=== PATIENT | male | born 1940 | race Caucasian/White ===

== ENCOUNTER 2017-11-05 09:08 | Inpatient (IN) | payer OTHER, MEDICARE ==
[2017-11-05] VITALS (8 sets, daily range): BP systolic 142–168; BP diastolic 46–75
[~2017-11-05] VITALS: Ht 182.8 cm; Wt 111.6 kg
--- NOTE | ~2017-11-05 | PR ---
[place], [place] PROGRESS NOTE NAME: DUONG BENJAMIN UNIT #: [id number] ROOM: 405 DOCTOR: MARIANA KESSLER MD BIRTHDATE: [birth year] DOS: 11/06/2017 CARDIOLOGY PROGRESS NOTE SUBJECTIVE: The patient was seen today, 11/06/2017, in the Cardiology Department just prior to a pharmacologic stress test. He is a 76-year-old man who has a history of atherosclerotic heart disease with a stent placed in 2017. Details are not available at this time. He does have degenerative joint disease and a torn left rotator cuff. He presented to the hospital on 11/05/2017 after feeling weak with swelling of his face and left shoulder pain. In the hospital, his electrocardiogram showed no acute changes and cardiac biomarkers were normal. Overnight, he has felt better and he states that the weakness has resolved. PHYSICAL EXAMINATION: VITAL SIGNS: Today, his pulse is 63 and regular, blood pressure is 164/65. He is afebrile. He weighs 111.6 kilograms. NECK: Supple. He has no jugular distention. Carotids are full. LUNGS: Respirations are unlabored. HEART: Has a regular rhythm with an S4 gallop. ABDOMEN: Soft and normally active. EXTREMITIES: Showed no edema. IMPRESSION: 1. Atypical chest pain, most likely musculoskeletal in origin. 2. History of coronary artery disease, status post stent reported about a year ago. Details not available. 3. Chronic dyspnea on exertion due to obstructive lung disease. 4. Essential hypertension. 5. Hyperlipidemia. PLAN: We will proceed with a pharmacologic stress test today. Further recommendations will depend upon the results of the stress test. The patient was noted to have normal oximetry at rest today and oxygen will be discontinued at this time. We thank the hospitalist physicians for asking our advice regarding his care. [place], [place] PROGRESS NOTE NAME: DUONG BENJAMIN UNIT #: [id number] ROOM: 405 DOCTOR: MARIANA KESSLER MD BIRTHDATE: [birth year] MARIANA KESSLER MD CM:PNTRANS [id number] MARIANA KESSLER MD 11/06/17 1352 interface
--- NOTE | ~2017-11-05 | CON ---
[place], [place] REPORT OF CONSULTATION NAME[id number] UNIT #: [id number] ROOM: 405 DOCTOR: MARIANA KESSLER MD BIRTHDATE: [birth year] DOS: 11/05/2017 REASON FOR CONSULTATION: Chest pain and dyspnea. HISTORY OF PRESENT ILLNESS: The patient is a 76-year-old man who is typically followed by the [facility]. He does have a history of atherosclerotic heart disease and tells me that he had catheterization in 1983 and again in 2017. The latter resulted in placement of a stent, although those details are not currently available. He also does have degenerative joint disease and has a torn left rotator cuff. He states that he began to feel weak on the afternoon prior to his admission and went to bed early. When he woke up, he felt that his face was swollen and his left shoulder hurt more than usual. He also noticed some aching in his left anterior chest. He became concerned and came to the Emergency Room. Thus far electrocardiograms have shown no acute changes and cardiac biomarkers including troponin levels have been normal. At present time, he still does note some left shoulder pain, but does admit that this gets worse with motion. PAST MEDICAL HISTORY: Includes 1. Atherosclerotic heart disease, status post myocardial infarction in 1983 and again in 2017. The patient believes he had a stent with the 2017 event. 2. Essential hypertension. 3. Type 2 diabetes mellitus. 4. COPD. The patient does not require home oxygen. 5. Hyperlipidemia. 6. History of GI bleed. 7. Dementia. 8. History of appendectomy, hernia repair and tonsillectomy. REVIEW OF SYSTEMS: The patient denies diplopia or loss of vision. He denies any focal weakness. He denies lightheadedness or syncope. He denies orthopnea or PND. He denies fevers, chills, sweats or recent weight change. He denies nausea or vomiting. He denies hemoptysis or hematemesis. He denies change in bowel or bladder habits. He denies blood in his stools or urine. He does admit to swelling of his face, neck and feet. He attributes the left foot swelling to an old injury. He denies any skin rashes. The remainder of the review of systems is negative except as noted above. FAMILY HISTORY: The patient's mother of cancer in the bone, unknown age. His father of coronary artery disease at an unknown age. MEDICATIONS: Prior to admission, Symbicort 160/4.5 one puff b.i.d., Combivent 1 puff q.i.d., atorvastatin 80 mg daily, donepezil 10 mg daily, gabapentin 1200 mg daily at bedtime with 400 mg in the morning and again in the afternoon, hydrochlorothiazide 12.5 mg daily, losartan 50 mg daily, melatonin 9 mg at bedtime, memantine 10 mg b.i.d., metformin 850 mg b.i.d., metoprolol tartrate 50 mg b.i.d., ranitidine 300 mg at bedtime, sertraline 200 mg daily, nitroglycerin sublingually p.r.n., NovoLog insulin 15 units subcutaneously t.i.d. and Lantus insulin 50 units in the morning. [place], [place] REPORT OF CONSULTATION NAME: DUONG BENJAMIN UNIT #: [id number] ROOM: 405 DOCTOR: MARIANA KESSLER MD BIRTHDATE: [birth year] ALLERGIES: The patient has no known drug allergies. SOCIAL HISTORY: The patient is . He was a smoker, but quit about 15 years ago. He does not use illegal drugs or consume alcohol. PHYSICAL EXAMINATION: GENERAL: The patient is an overweight white male who is awake, alert and oriented. VITAL SIGNS: Pulse is 70 and regular, blood pressure is 142/54. He is afebrile. He weighs 111.6 kg and has a body mass index of 33.4. HEENT: Normocephalic and atraumatic. Extraocular muscles are intact. Sclerae are clear. Pupils are equal, round and react to light. The oral mucosa is moist. Tongue is midline. NECK: Supple. He has no jugular distention. Carotids are full. I heard no bruits. He had no neck or supraclavicular masses and no thyromegaly. LUNGS: Respirations are unlabored. He has decreased breath sounds at the bases. He has mild expiratory prolongation bilaterally. I did not hear wheezes or rales. He had no presacral edema or chest wall tenderness. CARDIOVASCULAR: His heart had a regular rhythm. Heart tones were distant. There was a fourth heart sound, but no third heart sound. The PMI was not displaced and there was no precordial heave, lift or thrill. ABDOMEN: Obese, but otherwise benign, without mass, organomegaly, bruits or rebound. EXTREMITIES: Showed trace edema bilaterally. Peripheral pulses are palpable in the feet. LABORATORY DATA: Chest x-ray shows clear lung mckenna without any acute changes. His electrocardiogram shows sinus rhythm and is a normal tracing. Hemoglobin is 13.5, hematocrit 40.4. There are 10,500 white cells and 120,000 platelets. INR 0.9. Sodium 140, potassium 4.4, chloride 105, CO2 of 30, BUN 17, creatinine 1.19, sugar is 256. Alkaline phosphatase is elevated at 129. IMPRESSION: 1. Atypical chest pain, most likely this is musculoskeletal in origin. 2. History of coronary artery disease, status post reported stent over a year ago. 3. Chronic dyspnea on exertion due to obstructive lung disease. 4. Essential hypertension. 5. Hyperlipidemia. PLAN: Thus far, the patient shows no signs of an acute coronary injury. We will reassess him with a pharmacologic stress test and we will also look at an echocardiogram to assess left ventricular systolic function given his history of peripheral edema. If that looks okay, I have no other plans for further advanced workup, but we will make further recommendations depending upon the results of his testing. I thank the hospitalist physicians for asking our advice regarding his care. [place], [place] REPORT OF CONSULTATION NAME: DUONG BENJAMIN UNIT #: [id number] ROOM: 405 DOCTOR: MARIANA KESSLER MD BIRTHDATE: [birth year] MARIANA KESSLER MD CM:CONSTR:REPORT OF CONSULTATION 04 11/05/171945 interface
[~2017-11-05 09:08] MED LIST: ARICEPT10 M1 PO; ATORVASTATIN CA80 M1 PO; COMBIVENT RESPIM4 GM INH; COZAAR50 M1 PO; HYDR25T PO; LANTUS SOLOS100 U/M1 SQ; LOPRESSOR50 M1 PO; MELATONIN3 MG PO; MEMANTINE HCL10 MG PO; METFORMIN HCL850 MG PO; NEURONTIN400 MG PO; NITROGLYCERIN0.4 MG SL; NOVOLOG FLEX100 U/ML SQ; RANITIDINE HCL150 M1 PO; SYMBICORT1 AE1 INH; ZOLOFT100 MG PO; ZOSTRIX 0.025%,60 GM PO
[2017-11-05 09:38] LABS: BASO # 0.1 10*3/uL (0.0-0.1); BASO % 0.5 % (0.0-1.0); EOS # 0.2 10*3/uL (0.0-0.4); HEMATOCRIT 40.4 % (42.0-52.0); HEMOGLOBIN 13.5 g/dl (14.0-18.0); LYMPH # 1.9 10*3/uL (1.3-4.4); LYMPH % 17.7 % (27.0-41.0); MEAN CELL VOLUME 87.6 fl (80.0-94.0); MEAN CORPUSCULAR HGB 29.3 pg (27.0-31.0); MEAN CORPUSCULAR HGB CONC 33.4 g/dl (33.0-37.0); MEAN PLATELET VOLUME 9.2 fl (9.6-12.3); MONO # 0.5 10*3/uL (0.1-1.0); MONO % 4.9 % (3.0-9.0); NEUT # 7.8 10*3/uL (2.3-7.9); NEUT % 74.4 % (47.0-73.0); PLATELET COUNT AUTOMATED 120 10*3/uL (130-400); RED BLOOD COUNT 4.61 10*6/uL (4.50-5.90); RED CELL DISTRI WIDTH 14.5 % (0-14.5); WHITE BLOOD COUNT 10.5 10*3/uL (4.8-10.8)
[2017-11-05 09:48] LABS: ACT PARTIAL THROMBO TIME 20.5 SECONDS (20.8-31.5); INTERNATIONAL NORM RATIO 0.9 (2.0-3.5)
[2017-11-05 09:59] LABS: ALBUMIN 3.5 gm/dl (3.1-4.5); ALKALINE PHOSPHATASE 129 U/L (45-117); BUN 17 mg/dl (7-24); CHLORIDE 105 mmol/L (98-107); CREATININE 1.19 mg/dL (0.70-1.30); POTASSIUM 4.4 mmol/L (3.5-5.1); SGOT/AST 12 IU/L (3-35); SGPT/ALT 19 U/L (12-78); SODIUM 140 mmol/L (136-145); TOTAL PROTEIN 6.9 gm/dL (6.4-8.2)
[2017-11-05 10:01] LABS: TROPONIN I < 0.015 ng/ml (<0.045)
[2017-11-06] VITALS: BP 152/66
[2017-11-06 07:35] LABS: BASO # 0.1 10*3/uL (0.0-0.1); BASO % 0.5 % (0.0-1.0); EOS # 0.2 10*3/uL (0.0-0.4); EOS % 2.3 % (1.0-4.0); HEMATOCRIT 39.3 % (42.0-52.0); HEMOGLOBIN 13.1 g/dl (14.0-18.0); LYMPH # 2.5 10*3/uL (1.3-4.4); LYMPH % 23.9 % (27.0-41.0); MEAN CELL VOLUME 87.1 fl (80.0-94.0); MEAN CORPUSCULAR HGB CONC 33.3 g/dl (33.0-37.0); MEAN PLATELET VOLUME 9.5 fl (9.6-12.3); MONO # 0.6 10*3/uL (0.1-1.0); MONO % 5.7 % (3.0-9.0); NEUT # 6.9 10*3/uL (2.3-7.9); NEUT % 67.3 % (47.0-73.0); PLATELET COUNT AUTOMATED 133 10*3/uL (130-400); RED BLOOD COUNT 4.51 10*6/uL (4.50-5.90); RED CELL DISTRI WIDTH 14.5 % (0-14.5); WHITE BLOOD COUNT 10.3 10*3/uL (4.8-10.8)
[2017-11-06 08:00] VITALS: BP 164/65
[2017-11-06 08:24] LABS: ALBUMIN 3.3 gm/dl (3.1-4.5); ALKALINE PHOSPHATASE 129 U/L (45-117); BUN 17 mg/dl (7-24); CHLORIDE 104 mmol/L (98-107); CHOLESTEROL 135 mg/dL (<200); CREATININE 1.11 mg/dL (0.70-1.30); FREE T4 0.74 ng/dl (0.76-1.46); HDL CHOLESTEROL 44 mg/dl (40-60); LDL CHOLESTEROL 20 mg/dL (9-159); PHOSPHOROUS 2.5 mg/dL (2.5-4.9); SGOT/AST 8 IU/L (3-35); SGPT/ALT 19 U/L (12-78); SODIUM 140 mmol/L (136-145); TOTAL PROTEIN 6.9 gm/dL (6.4-8.2); TRIGLYCERIDES 353 mg/dl (<150); VLDL CHOLESTEROL 71 mg/dL (6-40)
[2017-11-06 08:34] LABS: VITAMIN D, 25-HYDROXY 10.3 ng/mL (30-100)
[2017-11-06 12:00] VITALS: BP 147/75
== END 2017-11-06 15:53 | disposition home or self-care (01) | DRG 313 ==
LOC: ED 09:08 → EDHOLD 12:32 → 4E 12:32
PROVIDERS: Internal Medicine; Physician Assistant
PROC: 4A02XM4 Measurement of Cardiac Total Activity, External Approach (ICD-10-PCS; principal; 2017-11-06)
PROC: 3E073KZ Introduction of Other Diagnostic Substance into Coronary Artery, Percutaneous Approach (ICD-10-PCS; principal; 2017-11-06)
DX: R07.89 Other chest pain (principal); I25.10 Atherosclerotic heart disease of native coronary artery without angina pectoris; E11.65 Type 2 diabetes mellitus with hyperglycemia; D64.9 Anemia, unspecified; J44.9 Chronic obstructive pulmonary disease, unspecified; M25.512 Pain in left shoulder; R74.8 Abnormal levels of other serum enzymes; I10 Essential (primary) hypertension; J01.90 Acute sinusitis, unspecified; F03.90 Unspecified dementia, unspecified severity, without behavioral disturbance, psychotic disturbance, mood disturbance, and anxiety; E78.5 Hyperlipidemia, unspecified; F43.10 Post-traumatic stress disorder, unspecified; I25.2 Old myocardial infarction; Z98.61 Coronary angioplasty status; Z79.899 Other long term (current) drug therapy; Z90.49 Acquired absence of other specified parts of digestive tract; Z90.89 Acquired absence of other organs; Z87.891 Personal history of nicotine dependence; Z79.4 Long term (current) use of insulin; Z82.49 Family history of ischemic heart disease and other diseases of the circulatory system; Z80.8 Family history of malignant neoplasm of other organs or systems

== ENCOUNTER 2021-05-01 14:46 | Inpatient (IN) | payer OTHER ==
[~2021-05-01] VITALS: Ht 182.8 cm; Wt 43.3 kg
[2021-05-01 14:52] VITALS: BP 157/70
[2021-05-01 15:16] VITALS: BP 141/88
[2021-05-01 15:19] LABS: BASO % 0.3 % (0.0-1.0); HEMATOCRIT 37.1 % (42.0-52.0); LYMPH # 0.5 10*3/uL (1.3-4.4); LYMPH % 14.7 % (27.0-41.0); MEAN CELL VOLUME 85.3 fl (80.0-94.0); MEAN PLATELET VOLUME 9.1 fl (9.6-12.3); MONO # 0.2 10*3/uL (0.1-1.0); MONO % 4.1 % (3.0-9.0); NEUT % 80.4 % (47.0-73.0); PLATELET COUNT AUTOMATED 109 10*3/uL (130-400); RED BLOOD COUNT 4.35 10*6/uL (4.50-5.90); WHITE BLOOD COUNT 3.7 10*3/uL (4.8-10.8)
[2021-05-01 15:40] LABS: ALKALINE PHOSPHATASE 150 U/L (45-117); BUN 26 mg/dl (7-24); CHLORIDE 100 mmol/L (98-107); CREATININE 1.09 mg/dL (0.70-1.30); POTASSIUM 3.7 mmol/L (3.5-5.1); SGOT/AST 41 IU/L (3-35); SGPT/ALT 27 U/L (12-78); SODIUM 135 mmol/L (136-145); TOTAL PROTEIN 7.3 gm/dL (6.4-8.2)
[2021-05-01 19:21] VITALS: BP 163/93; BP 183/88
[2021-05-01 20:32] VITALS: BP 161/77
[2021-05-01 20:41] LABS: BILIRUBIN Negative (Negative); BLOOD Trace-Lysed (Negative); CLARITY Clear (Clear); COLOR Yellow (Yellow); GLUCOSE 3+ (Negative); KETONE 1+ (Negative); LEUKO ESTERASE Negative (Negative); NITRITE Negative (Negative); SPECIFIC GRAVITY >= 1.030 (1.001-1.030)
[2021-05-01 20:53] LABS: BACTERIA TRACE; HYALINE CAST 0-2; RBC 0-2 rbc/hpf (0-2); WBC 0-2 wbc/hpf (0-5)
[2021-05-02] VITALS (10 sets, daily range): BP systolic 129–176; BP diastolic 69–112
[2021-05-02] MEDS ORDERED: Methadone Hydro10 MG PO (11:00)
[2021-05-02] MEDS ORDERED: IBUPROFEN600 MG PO (11:00)
[2021-05-02] MEDS ORDERED: TRAZODONE50 MG PO (11:01)
[2021-05-02] MEDS ORDERED: ONDANSETRON HYDR4 MG PO (11:02)
[2021-05-02] MEDS ORDERED: NEURONTIN400 MG PO (11:23)
[2021-05-02] MEDS ORDERED: LASIX40 MG PO (11:24)
[2021-05-02] MEDS ORDERED: QUALITY CHOICE81 M1 PO (11:24)
[2021-05-03] VITALS: BP 141/72
[2021-05-03 06:12] LABS: ALBUMIN 2.6 gm/dl (3.1-4.5); BUN 32 mg/dl (7-24); CHLORIDE 99 mmol/L (98-107); CREATININE 1.08 mg/dL (0.70-1.30); POTASSIUM 3.6 mmol/L (3.5-5.1); SGOT/AST 40 IU/L (3-35); SGPT/ALT 28 U/L (12-78); SODIUM 135 mmol/L (136-145)
[2021-05-03 06:14] LABS: ALKALINE PHOSPHATASE 134 U/L (45-117); TOTAL PROTEIN 6.9 gm/dL (6.4-8.2)
[2021-05-03 06:36] LABS: HEMATOCRIT 37.8 % (42.0-52.0); LYMPH % 17.1 % (27.0-41.0); MEAN CELL VOLUME 87.7 fl (80.0-94.0); MEAN CORPUSCULAR HGB 28.5 pg (27.0-31.0); MEAN CORPUSCULAR HGB CONC 32.5 g/dl (33.0-37.0); MEAN PLATELET VOLUME 9.4 fl (9.6-12.3); MONO # 0.3 10*3/uL (0.1-1.0); MONO % 5.3 % (3.0-9.0); NEUT # 4.4 10*3/uL (2.3-7.9); NEUT % 76.4 % (47.0-73.0); RED BLOOD COUNT 4.31 10*6/uL (4.50-5.90); RED CELL DISTRI WIDTH 15.3 % (0-14.5); WHITE BLOOD COUNT 5.8 10*3/uL (4.8-10.8)
[2021-05-03 06:39] LABS: PLATELET COUNT AUTOMATED 146 10*3/uL (130-400)
[2021-05-03 09:00] VITALS: BP 147/61
[2021-05-03 12:00] VITALS: BP 114/54
[2021-05-03 16:00] VITALS: BP 133/64
[2021-05-03 20:00] VITALS: BP 150/63
[2021-05-04] VITALS: BP 143/76
[2021-05-04 08:00] VITALS: BP 155/77
[2021-05-04 12:00] VITALS: BP 128/65
[2021-05-04 16:00] VITALS: BP 119/61; BP 134/71
[2021-05-04 20:00] VITALS: BP 127/60
[2021-05-05] VITALS: BP 115/70
[2021-05-05 08:00] VITALS: BP 132/65
[2021-05-05 12:00] VITALS: BP 137/64
[2021-05-05 16:00] VITALS: BP 135/61
[2021-05-05 20:00] VITALS: BP 130/74
[2021-05-06] VITALS: BP 133/73
[2021-05-06 05:50] LABS: CREATININE 1.22 mg/dL (0.70-1.30)
[2021-05-06 06:18] LABS: HEMATOCRIT 40.8 % (42.0-52.0); MEAN CORPUSCULAR HGB 28.4 pg (27.0-31.0); MEAN CORPUSCULAR HGB CONC 33.8 g/dl (33.0-37.0); MEAN PLATELET VOLUME 9.2 fl (9.6-12.3); PLATELET COUNT AUTOMATED 260 10*3/uL (130-400); RED BLOOD COUNT 4.86 10*6/uL (4.50-5.90); WHITE BLOOD COUNT 10.1 10*3/uL (4.8-10.8)
[2021-05-06 07:27] LABS: ATYPICAL LYMPHS 2 % (0-0); TOTAL CELLS COUNTED 100 #CELLS
[2021-05-06 07:28] LABS: PLATELET SUFFICIENCY NORMAL (NORMAL); POLYCHROMASIA SLIGHT
[2021-05-06 08:00] VITALS: BP 149/74
[2021-05-06 12:00] VITALS: BP 124/64
[2021-05-06 16:00] VITALS: BP 108/88
[2021-05-06 20:00] VITALS: BP 134/79
[2021-05-07] VITALS: BP 146/68
[2021-05-07 08:00] VITALS: BP 135/75
[2021-05-07 12:00] VITALS: BP 116/67
[2021-05-07 16:00] VITALS: BP 123/59
[2021-05-07 20:00] VITALS: BP 132/64
[2021-05-08] VITALS: BP 130/57
[2021-05-08 08:00] VITALS: BP 135/56
[2021-05-08] MEDS ORDERED: DECADRON6 M1 PO (11:32)
[2021-05-08 12:00] VITALS: BP 153/65
== END 2021-05-08 15:47 | disposition hospice, home (50) | DRG 178 ==
LOC: ED 14:46 → EDHOLD 19:17 → 4E 19:17
PROVIDERS: Physician Assistant; Student in an Organized Health Care Education/Training Program; ADMIT Internal Medicine; ATTEND Internal Medicine
PROC: XW033E5 Introduction of Remdesivir Anti-infective into Peripheral Vein, Percutaneous Approach, New Technology Group 5 (ICD-10-PCS; principal; 2021-05-03)
DX: U07.1 COVID-19 (principal); E44.0 Moderate protein-calorie malnutrition; E87.1 Hypo-osmolality and hyponatremia; C34.90 Malignant neoplasm of unspecified part of unspecified bronchus or lung; Z68.1 Body mass index [BMI] 19.9 or less, adult; E78.5 Hyperlipidemia, unspecified; D64.9 Anemia, unspecified; R62.7 Adult failure to thrive; M25.512 Pain in left shoulder; R73.9 Hyperglycemia, unspecified; Z51.5 Encounter for palliative care; Z87.891 Personal history of nicotine dependence; Z82.49 Family history of ischemic heart disease and other diseases of the circulatory system; Z90.49 Acquired absence of other specified parts of digestive tract; Z79.82 Long term (current) use of aspirin; Z79.899 Other long term (current) drug therapy

== ENCOUNTER 2021-06-11 14:11 | Inpatient (IN) | payer OTHER ==
[~2021-06-11] VITALS: Ht 182.9 cm; Wt 95.9 kg
[~2021-06-11 14:11] MED LIST changes: +DECADRON6 M1 PO; +IBUPROFEN600 MG PO; +LASIX40 MG PO; +Methadone Hydro10 MG PO; +ONDANSETRON HYDR4 MG PO; +QUALITY CHOICE81 M1 PO; +TRAZODONE50 MG PO
[2021-06-11 14:20] VITALS: BP 146/88
[2021-06-11 14:55] LABS: BASO % 0.3 % (0.0-1.0); LYMPH # 0.7 10*3/uL (1.3-4.4); LYMPH % 9.2 % (27.0-41.0); MEAN CELL VOLUME 87.3 fl (80.0-94.0); MEAN CORPUSCULAR HGB 28.2 pg (27.0-31.0); MEAN CORPUSCULAR HGB CONC 32.3 g/dl (33.0-37.0); MEAN PLATELET VOLUME 8.8 fl (9.6-12.3); MONO # 0.4 10*3/uL (0.1-1.0); MONO % 5.2 % (3.0-9.0); NEUT % 84.9 % (47.0-73.0); PLATELET COUNT AUTOMATED 126 10*3/uL (130-400); RED BLOOD COUNT 3.55 10*6/uL (4.50-5.90); RED CELL DISTRI WIDTH 15.9 % (0-14.5); WHITE BLOOD COUNT 7.1 10*3/uL (4.8-10.8)
[2021-06-11 15:06] LABS: ACT PARTIAL THROMBO TIME 23.3 SECONDS (20.0-32.1)
[2021-06-11 15:14] LABS: ALBUMIN 2.4 gm/dl (3.1-4.5); ALKALINE PHOSPHATASE 200 U/L (45-117); BUN 19 mg/dl (7-24); CHLORIDE 99 mmol/L (98-107); CREATININE 1.36 mg/dL (0.70-1.30); LIPASE 69 U/L (73-393); POTASSIUM 4.2 mmol/L (3.5-5.1); SGOT/AST 44 IU/L (3-35); SGPT/ALT 36 U/L (12-78); SODIUM 135 mmol/L (136-145); TOTAL PROTEIN 7.1 gm/dL (6.4-8.2)
[2021-06-11 16:00] VITALS: BP 129/46
[2021-06-11 16:31] LABS: BILIRUBIN Negative (Negative); BLOOD 3+ (Negative); CLARITY Turbid (Clear); COLOR Yellow (Yellow); GLUCOSE 3+ (Negative); KETONE Negative (Negative); LEUKO ESTERASE 3+ (Negative); NITRITE Positive (Negative); PH 5.5 (4.5-8.0); UROBILINOGEN 0.2 E.U./dl (0.0-1.0)
[2021-06-11 16:59] LABS: BACTERIA 4+; EPITHELIAL CELLS 0-2; MUCOUS TRACE; RBC TNTC rbc/hpf (0-2); WBC TNTC wbc/hpf (0-5)
[2021-06-11 18:00] VITALS: BP 131/56
[2021-06-11] MEDS ORDERED: NOVOLOG FL100 UNIT/2 SQ (18:11)
[2021-06-11] MEDS ORDERED: MORPHINE SULFATE5 MG PO (18:13)
[2021-06-11] MEDS ORDERED: MIRALAX POWDER17 G1 PO (18:13)
[2021-06-11] MEDS ORDERED: SENNA-PLUS TAB1 EACH PO (18:14)
[2021-06-11] MEDS ORDERED: TOPROL XL25 MG PO (18:14)
[2021-06-11] MEDS ORDERED: ATIVAN0.5 MG PO (18:15)
[2021-06-11] MEDS ORDERED: LEVSIN0.125 M2 PO (18:16)
[2021-06-11] MEDS ORDERED: BUSPAR5 MG PO (18:16)
[2021-06-11] MEDS ORDERED: HYDROCODON-ACE1 EACH PO (18:17)
[2021-06-11 19:50] VITALS: BP 134/56
[2021-06-11 21:39] VITALS: BP 143/49
[2021-06-12] VITALS (9 sets, daily range): BP systolic 112–161; BP diastolic 49–64
[2021-06-12 05:27] LABS: ALBUMIN 2.3 gm/dl (3.1-4.5); BUN 20 mg/dl (7-24); CHLORIDE 98 mmol/L (98-107); POTASSIUM 4.9 mmol/L (3.5-5.1); SODIUM 134 mmol/L (136-145)
[2021-06-12 05:40] LABS: ALKALINE PHOSPHATASE 198 U/L (45-117); CREATININE 1.16 mg/dL (0.70-1.30); SGOT/AST 63 IU/L (3-35); SGPT/ALT 44 U/L (12-78); TOTAL PROTEIN 6.8 gm/dL (6.4-8.2)
[2021-06-12 06:51] LABS: BASO % 0.5 % (0.0-1.0); EOS % 0.2 % (1.0-4.0); HEMATOCRIT 30.7 % (42.0-52.0); LYMPH # 1.2 10*3/uL (1.3-4.4); LYMPH % 17.9 % (27.0-41.0); MEAN CELL VOLUME 89.5 fl (80.0-94.0); MEAN CORPUSCULAR HGB 28.3 pg (27.0-31.0); MEAN CORPUSCULAR HGB CONC 31.6 g/dl (33.0-37.0); MEAN PLATELET VOLUME 9.7 fl (9.6-12.3); MONO # 0.5 10*3/uL (0.1-1.0); MONO % 7.4 % (3.0-9.0); NEUT # 4.9 10*3/uL (2.3-7.9); NEUT % 73.7 % (47.0-73.0); PLATELET COUNT AUTOMATED 122 10*3/uL (130-400); RED BLOOD COUNT 3.43 10*6/uL (4.50-5.90); RED CELL DISTRI WIDTH 15.8 % (0-14.5); WHITE BLOOD COUNT 6.6 10*3/uL (4.8-10.8)
[2021-06-13] VITALS: BP 133/53
[2021-06-13 08:00] VITALS: BP 124/82
[2021-06-13 12:00] VITALS: BP 137/52
[2021-06-13 16:00] VITALS: BP 134/54
[2021-06-13 20:00] VITALS: BP 115/45
[2021-06-14] VITALS: BP 139/61
[2021-06-14 06:30] LABS: BASO % 0.3 % (0.0-1.0); EOS # 0.1 10*3/uL (0.0-0.4); EOS % 1.2 % (1.0-4.0); HEMATOCRIT 30.2 % (42.0-52.0); LYMPH # 1.6 10*3/uL (1.3-4.4); LYMPH % 23.3 % (27.0-41.0); MEAN CELL VOLUME 86.8 fl (80.0-94.0); MEAN CORPUSCULAR HGB 27.9 pg (27.0-31.0); MEAN CORPUSCULAR HGB CONC 32.1 g/dl (33.0-37.0); MEAN PLATELET VOLUME 9.1 fl (9.6-12.3); MONO # 0.5 10*3/uL (0.1-1.0); MONO % 7.2 % (3.0-9.0); NEUT # 4.6 10*3/uL (2.3-7.9); NEUT % 67.4 % (47.0-73.0); PLATELET COUNT AUTOMATED 127 10*3/uL (130-400); RED BLOOD COUNT 3.48 10*6/uL (4.50-5.90); RED CELL DISTRI WIDTH 15.8 % (0-14.5); WHITE BLOOD COUNT 6.8 10*3/uL (4.8-10.8)
[2021-06-14 06:44] LABS: ALBUMIN 2.1 gm/dl (3.1-4.5); ALKALINE PHOSPHATASE 260 U/L (45-117); BUN 16 mg/dl (7-24); CHLORIDE 100 mmol/L (98-107); CREATININE 0.85 mg/dL (0.70-1.30); POTASSIUM 3.8 mmol/L (3.5-5.1); SGOT/AST 67 IU/L (3-35); SGPT/ALT 60 U/L (12-78); SODIUM 135 mmol/L (136-145); TOTAL PROTEIN 6.7 gm/dL (6.4-8.2)
[2021-06-14 08:00] VITALS: BP 119/71
[2021-06-14 12:00] VITALS: BP 130/56
[2021-06-14] MEDS ORDERED: CIPRO500 MG PO (14:15)
[2021-06-14] MEDS ORDERED: Methadone Hydro10 MG PO (14:25)
[2021-06-14] MEDS ORDERED: MORPHINE SULFATE5 MG PO (14:28)
[2021-06-14] MEDS ORDERED: NEURONTIN400 MG PO ×3 (14:28)
[2021-06-14] MEDS ORDERED: HYDROCODON-ACE1 EACH PO (14:28)
[2021-06-14] MEDS ORDERED: ATIVAN0.5 MG PO (14:28)
[2021-06-14] MEDS ORDERED: METHADONE HYDRO10 MG PO (14:40)
== END 2021-06-14 20:30 | disposition hospice, home (50) | DRG 689 ==
LOC: ED 14:11 → EDHOLD 19:09 → 5E 19:09
PROVIDERS: Emergency Medicine; Internal Medicine; ADMIT Internal Medicine; ATTEND Internal Medicine
DX: N30.01 Acute cystitis with hematuria (principal); N17.0 Acute kidney failure with tubular necrosis; E43 Unspecified severe protein-calorie malnutrition; C34.11 Malignant neoplasm of upper lobe, right bronchus or lung; E87.1 Hypo-osmolality and hyponatremia; Z51.5 Encounter for palliative care; Z20.822 Contact with and (suspected) exposure to COVID-19; B96.1 Klebsiella pneumoniae [K. pneumoniae] as the cause of diseases classified elsewhere; E11.65 Type 2 diabetes mellitus with hyperglycemia; Z66 Do not resuscitate; I25.10 Atherosclerotic heart disease of native coronary artery without angina pectoris; D64.9 Anemia, unspecified; D69.6 Thrombocytopenia, unspecified; R74.01 Elevation of levels of liver transaminase levels; F03.90 Unspecified dementia, unspecified severity, without behavioral disturbance, psychotic disturbance, mood disturbance, and anxiety; J44.9 Chronic obstructive pulmonary disease, unspecified; E78.5 Hyperlipidemia, unspecified; I11.0 Hypertensive heart disease with heart failure; Z95.828 Presence of other vascular implants and grafts; Z79.4 Long term (current) use of insulin; Z87.891 Personal history of nicotine dependence; Z68.28 Body mass index [BMI] 28.0-28.9, adult